=== PATIENT | male | born 1955 | race Caucasian/White ===

== ENCOUNTER → 2021-06-22 | Outpatient (CLI) | payer OTHER ==
[~2021-06-22] MED LIST: BROVANA15 MCG/2 M INH; DALIRESP500 MCG PO; DOXYCYCLINE HY100 MG PO; FARXIGA10 MG PO; GEMFIBROZIL600 MG PO; GLIPIZIDE10 MG PO; GLUCOPHAGE XR500 MG PO; GLUCOTROL 10 MG10 MG PO; IPRAT-ALBUT 0.5-3 ML INH; LANTUS SOL100 UNIT/1 SQ; LEVAQUIN750 MG PO; LISINOPRIL10 MG PO; LOVASTATIN40 MG PO; MEDROL DOSEPAK 24 MG PO; METFORMIN HCL1000 MG PO; NOVOLIN 70100 UNIT/1 SQ; NOVOLOG FL100 UNIT/1 SQ; PROAIR HFA8.5 GM INH; SYNTHROID125 MCG PO; SYNTHROID200 MCG PO; TUDORZA PRESS400 MCG INH
== END ==
LOC: KOH-I 11:30
DX: Z87.891 Personal history of nicotine dependence (principal); R91.1 Solitary pulmonary nodule
CPT/HCPCS: 71271

== ENCOUNTER 2021-11-07 09:21 | Observation (INO) | payer OTHER ==
[~2021-11-07] VITALS: Ht 175.3 cm; Wt 147.4 kg
[2021-11-07 09:45] LABS: HEMOGLOBIN 14.9 gm/dl (14.0-17.5); RED BLOOD COUNT 5.06 M/UL (4.20-5.50)
[2021-11-07 10:02] LABS: BUN/CREATININE RATIO 35 (0-10)
[2021-11-07 10:04] LABS: WHITE BLOOD COUNT 34.7 K/UL (4.5-11.0)
[2021-11-07] MEDS ORDERED: PROAIR HFA8.5 GM INH (11:26)
[2021-11-07] MEDS ORDERED: CLOPIDOGREL75 MG PO (11:27)
[2021-11-07] MEDS ORDERED: SYNTHROID50 MCG PO (11:28)
[2021-11-07] MEDS ORDERED: SYNTHROID200 MCG PO (11:28)
[2021-11-07] MEDS ORDERED: METFORMIN HCL500 M2 PO (11:29)
[2021-11-07] MEDS ORDERED: ZESTORETIC 20-1 EACH PO (11:29)
[2021-11-07] MEDS ORDERED: VITAMIN C 500500 MG PO (11:30)
[2021-11-07] MEDS ORDERED: DIALYVITE VIT125 MCG PO (11:31)
[2021-11-07] MEDS ORDERED: CO Q-10400 MG PO (11:32)
[2021-11-07] MEDS ORDERED: GINKGO60 MG PO (11:32)
[2021-11-07] MEDS ORDERED: NOVOLIN 70100 UNIT/1 SC (11:34)
[2021-11-07] MEDS ORDERED: LOPRESSOR 25 MG25 MG PO (11:35)
[2021-11-07] MEDS ORDERED: MEGARED OMEGA-1 EAC4 PO (11:35)
[2021-11-07] MEDS ORDERED: CENTRUM SILVER1 EAC1 PO (11:36)
[2021-11-07] MEDS ORDERED: PULMICORT0.5 MG/21 NEB (11:37)
[2021-11-07] MEDS ORDERED: NITROSTAT0.4 MG SL (11:37)
[2021-11-07] MEDS ORDERED: [UNRECOGNIZED DRUG - OTHER] PO (11:40)
[2021-11-07] MEDS ORDERED: [UNRECOGNIZED DRUG - OTHER] (11:40)
[2021-11-08 02:49] LABS: HEMOGLOBIN 14.4 gm/dl (14.0-17.5); RED BLOOD COUNT 4.96 M/UL (4.20-5.50)
[2021-11-08 03:05] LABS: BUN/CREATININE RATIO 30 (0-10)
[2021-11-08] MEDS ORDERED: PROAIR HFA8.5 GM INH (08:49)
[2021-11-08] MEDS ORDERED: PULMICORT0.5 MG/21 NEB (08:50)
--- NOTE | 2021-11-08 10:14 | NUR ---
sitting 02 89% on room air sitting 02 2 liters 92% ambulating room air oxygen 88%
--- NOTE | 2021-11-08 12:56 | NUR ---
OXYGEN ROOM AIR RESTING 88%
== END 2021-11-08 16:10 | disposition home or self-care (01) ==
LOC: ER1 09:21 → M/S 11:00 → CDU 11:00 → M/S 13:31
PROVIDERS: Family Medicine; Physician Assistant Medical; ADMIT Internal Medicine
DX: R07.89 Other chest pain (principal); R06.02 Shortness of breath; I25.10 Atherosclerotic heart disease of native coronary artery without angina pectoris; C91.10 Chronic lymphocytic leukemia of B-cell type not having achieved remission; J44.9 Chronic obstructive pulmonary disease, unspecified; E11.9 Type 2 diabetes mellitus without complications; I10 Essential (primary) hypertension; E03.9 Hypothyroidism, unspecified; E78.5 Hyperlipidemia, unspecified; E66.9 Obesity, unspecified; F17.210 Nicotine dependence, cigarettes, uncomplicated; Z95.5 Presence of coronary angioplasty implant and graft; Z79.84 Long term (current) use of oral hypoglycemic drugs; Z79.899 Other long term (current) drug therapy; Z20.822 Contact with and (suspected) exposure to COVID-19
CPT/HCPCS: 36415; 71045; 80048; 80053; 82550; 82553; 82962; 83605; 83735; 83880; 84484; 85025; 85027; 85610; 93005; 94640; 94664; 94760; 99285; G0378; U0002

== ENCOUNTER → 2021-11-12 | Outpatient (CLI) | payer OTHER ==
[~2021-11-12] MED LIST changes: +CENTRUM SILVER1 EAC1 PO; +CLOPIDOGREL75 MG PO; +CO Q-10400 MG PO; +DIALYVITE VIT125 MCG PO; +GINKGO60 MG PO; +LOPRESSOR 25 MG25 MG PO; +MEGARED OMEGA-1 EAC4 PO; +METFORMIN HCL500 M2 PO; +NITROSTAT0.4 MG SL; +NOVOLIN 70100 UNIT/1 SC; +PULMICORT0.5 MG/21 NEB; +SYNTHROID50 MCG PO; +VITAMIN C 500500 MG PO; +ZESTORETIC 20-1 EACH PO; +[UNRECOGNIZED DRUG - OTHER]; +[UNRECOGNIZED DRUG - OTHER] PO
== END ==
LOC: RT 11:39
DX: R09.02 Hypoxemia (principal)
CPT/HCPCS: 36600; 82803

== ENCOUNTER → 2022-02-07 | Outpatient (CLI) | payer OTHER | LOC: NM 08:16 | DX: I25.119 Atherosclerotic heart disease of native coronary artery with unspecified angina pectoris (principal); I50.42 Chronic combined systolic (congestive) and diastolic (congestive) heart failure; R06.02 Shortness of breath; R60.9 Edema, unspecified; I36.1 Nonrheumatic tricuspid (valve) insufficiency | CPT/HCPCS: 78452; 93017; A9502; J2785 ==

== ENCOUNTER 2022-02-27 01:43 | Emergency (ER) | payer OTHER ==
[2022-02-27 02:09] LABS: HEMOGLOBIN 14.5 gm/dl (14.0-17.5); RED BLOOD COUNT 4.9 M/UL (4.20-5.50); WHITE BLOOD COUNT 19.1 K/UL (4.5-11.0)
[2022-02-27 02:36] LABS: BUN/CREATININE RATIO 16 (0-10)
[2022-02-27] MEDS ORDERED: ZITHROMAX250 MG PO (04:39)
[2022-02-27] MEDS ORDERED: PREDNISONE 20 M20 MG PO (04:39)
== END 2022-02-27 05:15 | disposition home or self-care (01) ==
LOC: ER1 01:43
PROVIDERS: Student in an Organized Health Care Education/Training Program
DX: J44.1 Chronic obstructive pulmonary disease with (acute) exacerbation (principal); E11.9 Type 2 diabetes mellitus without complications; Z79.4 Long term (current) use of insulin; I10 Essential (primary) hypertension; E78.5 Hyperlipidemia, unspecified; Z20.822 Contact with and (suspected) exposure to COVID-19
CPT/HCPCS: 0240U; 71045; 80053; 82550; 82553; 84484; 85025; 93005; 94664; 96374; 99285; J1100